=== PATIENT | female | born 1960 | race Hispanic/Latino ===

== ENCOUNTER 2022-05-22 06:54 | Outpatient (CLI) | payer OTHER ==
--- NOTE | 2022-05-22 08:58 | Magnetic Resonance Report ---
MR abdomen MRCP HISTORY: Biliary colic, abdominal pain, cholecystectomy 07/13. TECHNIQUE: Thin slab coronal MRCP images. Radial MRCP images. Axial and coronal T2 fat sat images. COMPARISON: None. FINDINGS: Cholecystectomy changes are evident. The quality of the MRCP images are slightly limited secondary to breathing motion artifact. There is however evidence for one or 2 small filling defects in the dista l common bile duct measuring 2-3 mm in diameter concerning for choledocholithiasis. The CBD measures 7 mm in diameter on coronal T2 image 18. The pancreatic duct is normal. No dilatation or device. Signal characteristics of the liver, pancreas, spleen, kidneys, adrenal glands and visualized bowel l oops are within normal limits. The vascular structures are unremarkable. No evidence for mass, adenop athy, ascites or inflammatory changes. IMPRESSION: Small filling defects are identified in the distal common bile duct consistent with tiny stones or po ssibly sludge. The CBD measures 7 mm. Signer Name: Nolan Chopra Jr, MD Signed: 05/22/2022 8:53 AM Workstation Name: [id number]
== END 2022-05-22 06:55 | disposition home or self-care (01) ==
LOC: MRI 06:54
PROVIDERS: ATTEND Internal Medicine Gastroenterology
DX: K80.50 Calculus of bile duct without cholangitis or cholecystitis without obstruction (principal); Z90.49 Acquired absence of other specified parts of digestive tract
CPT/HCPCS: 74181